=== PATIENT | male | born 1945 | race Caucasian/White ===

== ENCOUNTER 2019-03-20 05:57 | Day surgery (SDC) | payer MEDICARE, BC ==
[2019-03-19 14:43] VITALS: BMI 29.2
[2019-03-20] MEDS ORDERED: EPINEPHrine 0.3 MG in Ophthalmic Irrigation Solution 500 ML IRR SCH (06:33)
[2019-03-20] MEDS ORDERED: Cyclopentolate 1% Opth Drop 2 ML BOT ONE (06:38)
[2019-03-20] MEDS ORDERED: Phenylephrine 2.5% Ophth Soln 5 ML BOT ONE (06:38)
[2019-03-20] MEDS ORDERED: PROPOFOL 40 ML ONE (06:43)
[2019-03-20] MEDS ORDERED: Midazolam HCl 2 mg/2 ml Vial ONE (06:43)
[2019-03-20] MEDS ORDERED: Fentanyl 100 MCG/2 ML VIAL ONE (06:43)
--- NOTE | 2019-03-20 09:47 | OP ---
DATE OF PROCEDURE: 03/20/2019 PREOPERATIVE DIAGNOSIS: Macula-off rhegmatogenous retinal detachment, left eye. POSTOPERATIVE DIAGNOSIS: Macula-off rhegmatogenous retinal detachment, left eye. PROCEDURES PERFORMED: 1. 25-gauge pars plana vitrectomy, left eye. 2. Rhegmatogenous retinal detachment repair, left eye. 3. Endolaser, left eye. 4. 15% SF6 fill, left eye. ESTIMATED BLOOD LOSS: None. SPECIMENS REMOVED: None. COMPLICATIONS: None. ANESTHESIA: MAC with retrobulbar block. DESCRIPTION OF PROCEDURE: The patient was identified in the preoperative holding area, where the correct eye being the left eye was marked for surgery. The patient was taken to the operating room, where MAC anesthesia was induced. A retrobulbar block was administered to the left eye. The block consisted of 1:1 ratio of 4% lidocaine and 0.75% Marcaine. A total of 5 mL was administered. The left eye was then prepped and draped in usual sterile ophthalmic fashion for surgery. A wire lid speculum was placed. A standard 25-gauge pars plana vitrectomy platform was fashioned with trocars placed approximately 3.5 mm from the limbus. The infusion was noted to be within the vitreous cavity prior to being turned on to an infusion pressure of 30 mmHg. The light pipe Micro vitrector was introduced in the eye under visualization of the BIOM viewing system. A macula-off rhegmatogenous retinal detachment was noted from approximately 11 o'clock to 3 o'clock. Few small defects were noted at approximately 12, 12:30, and 1 o'clock. A limited peripheral shave vitrectomy with the assistance of scleral depression was performed in this previously vitrectomized eye. Following vitrectomy, the aforementioned defects were marked with Endo cautery followed by creation of a superotemporal drainage retinotomy site. This was opened subsequently with a flute needle. An air-fluid exchange was performed, which allowed for complete flattening of the retina. Endolaser was used to provide barricade around the aforementioned defects as well as the retinotomy site and a 360 degree laser slightly posterior to the preexisting laser. Following Endolaser, the flute needle was reintroduced in the eye to remove the residual subretinal fluid. An air-gas exchange was subsequently performed with 15% SF6. The cannulas were sequentially removed with suturing of the superior two sclerotomies with 8-0 Vicryl suture required. Following suturing, all sclerotomies were noted to be gas tight. Subconjunctival Ancef and Kenalog were injected. The wire lid speculum was removed followed by application of TobraDex ophthalmic ointment and a light patch and shield. The patient tolerated the procedure well, was taken to outpatient recovery area in good condition. Job ID: [id number]
[2019-03-20] MEDS ORDERED: Lidocaine 4% PF 5 ML AMP ONE (10:39)
[2019-03-20] MEDS ORDERED: Bupivacaine PF 0.75% SDV 10 ML ONE (10:39)
[2019-03-20] MEDS ORDERED: CEFAZOLIN 1 GM VIAL ONE (10:39)
[2019-03-20] MEDS ORDERED: Maxitrol 0.1% Opth Oint 3.5 GM TUBE ONE (10:39)
[2019-03-20] MEDS ORDERED: Lidocaine 1% PF 5 ML VIAL ONE (10:39)
[2019-03-20] MEDS ORDERED: Triamcinolone 40 MG/ML VIAL ONE (10:39)
== END 2019-03-20 09:06 | disposition home or self-care (01) ==
LOC: SDC 05:57
PROVIDERS: ATTEND Ophthalmology Retina Specialist
PROC: 08T53ZZ Resection of Left Vitreous, Percutaneous Approach (ICD-10-PCS; principal; 2019-03-20)
DX: H33.002 Unspecified retinal detachment with retinal break, left eye (principal); Z88.5 Allergy status to narcotic agent
CPT/HCPCS: 67025; J0171; J0690; J2001; J2250; J2704; J3010; J3301; J3490

== ENCOUNTER 2021-01-08 12:20 | Inpatient (IN) | payer MEDICARE, BC ==
[2021-01-08 14:20] VITALS: BMI 27.9
[2021-01-08] MEDS ORDERED: FLU VACC QS2021-22(65YR UP)/PF 240 MCG/0.7 ML SYRINGE IM ONE (14:45)
[2021-01-08] MEDS ORDERED: Insulin Regular 300 UNITS/3 ML VIAL SC PRN (15:19)
[2021-01-08] MEDS ORDERED: hydrALAZINE 20 MG/ML VIAL SLOW IVP PRN (15:19)
[2021-01-08] MEDS ORDERED: Senokot S 8.6-50 MG TAB PO PRN (15:23)
[2021-01-08] MEDS ORDERED: Dextrose 5% in Water 1,000 ML IV PRN (16:22)
[2021-01-08] MEDS ORDERED: Dextrose 50% Abboject 50 ML SYRINGE SLOW IVP PRN (16:22)
[2021-01-08] MEDS: Acetaminophen 325 MG TAB PO SCH ×2 (17:28→20:22)
[2021-01-08] MEDS ORDERED: Alogliptin 6.25 MG TAB PO SCH (21:00)
[2021-01-08] MEDS ORDERED: Atorvastatin Calcium 40 MG TAB PO SCH (21:00)
[2021-01-09] MEDS: Acetaminophen 325 MG TAB PO SCH ×5 (01:32→17:39)
[2021-01-09] MEDS ORDERED: Melatonin 3 MG TAB PO PRN (01:37)
[2021-01-09 05:33] LABS: #Eosinphils 0.3 thou/uL (0.0-0.7); #Lymphocytes 1.5 thou/uL (1.20-3.40); #Monocytes 0.5 thou/uL (0.11-0.59); #Neutrophils 3.2 thou/uL (1.40-6.50); %Basophils 0.2 % (0.0-1.0); %Eosinophils 5.6 % (0.0-10.0); %Lymphocytes 26.9 % (21.0-51.0); %Monocytes 9.3 % (0.0-10.0); Hemoglobin 14.9 g/dL (14.0-18.0); Mean Corpuscular HGB CONC 32.6 g/dL (32.0-36.0); Mean Corpuscular Hemoglobin 32.7 pg (27.0-31.0); Mean Platelet Volume 6.6 fL (7.4-10.4); Platelet Count 210 thou/uL (130-400); RBC Distribution Width 11.4 % (11.5-14.5); Red Blood Cell (RBC) Count 4.54 mill/uL (4.70-6.10); White Blood Cell (WBC) Count 5.6 thou/uL (4.8-10.8)
[2021-01-09] MEDS: HumaLOG 300 UNITS/3 ML VIAL SC PRN ×2 (05:48→13:46)
[2021-01-09 05:55] LABS: Anion Gap 13 mmol/L (10-20); BUN (Urea Nitrogen) 24 mg/dL (8.4-25.7); Calc. Creatinine Clearance 70 mL/min (70-130); Calcium 9.2 mg/dL (7.8-10.44); Carbon Dioxide 21 mmol/L (23-31); Cardiac Risk 3.5 (Less than 4.5); Chloride 106 mmol/L (98-107); Cholesterol 134 mg/dl (< 200 Desired); Glucose 194 mg/dL (83-110); HDL Cholesterol 38 mg/dL (>60 Neg Risk); LDL Cholesterol, Calculated 64 mg/dL; Potassium 4.2 mmol/L (3.5-5.1); Sodium 136 mmol/L (136-145); Triglycerides 160 mg/dL (Less than 150)
[2021-01-09] MEDS ORDERED: Multivitamin W/ Minerals 1 TAB PO SCH (09:00)
[2021-01-09] MEDS ORDERED: Empagliflozin 25 MG TAB PO SCH (09:00)
[2021-01-09] MEDS ORDERED: Enoxaparin Sodium 40 MG/0.4 ML SYRINGE SC SCH (09:00)
[2021-01-09] MEDS ORDERED: Aspirin 81 mg Enteric Coated Tablet PO SCH ×2 (09:00)
[2021-01-09 15:48] VITALS: TEMP 98.4
[2021-01-09 23:19] VITALS: BP 142/77
== END 2021-01-09 18:32 | disposition home or self-care (01) | DRG 65 ==
LOC: NEURO 14:05
PROVIDERS: ADMIT Hospitalist; ATTEND Hospitalist
DX: I63.9 Cerebral infarction, unspecified (principal); G81.94 Hemiplegia, unspecified affecting left nondominant side; I25.10 Atherosclerotic heart disease of native coronary artery without angina pectoris; E11.9 Type 2 diabetes mellitus without complications; R29.810 Facial weakness; G93.89 Other specified disorders of brain; I25.5 Ischemic cardiomyopathy; R29.701 NIHSS score 1; Z95.5 Presence of coronary angioplasty implant and graft; Z95.0 Presence of cardiac pacemaker; Z79.82 Long term (current) use of aspirin; Z79.84 Long term (current) use of oral hypoglycemic drugs; Z79.899 Other long term (current) drug therapy; Z98.52 Vasectomy status; Z88.8 Allergy status to other drugs, medicaments and biological substances
CPT/HCPCS: 36415; 36416; 80061; 85025; 90471; 90662; 93005; 93010; 95712; 95819; 95957; G0008; J1650; J1815